=== PATIENT | female | born 1985 | race Caucasian/White ===

== ENCOUNTER → 2024-03-22 08:08 | Outpatient (REF) | payer BC, SELFPAY | LOC: HWWDC 08:08 | PROVIDERS: ATTENDING PHYSICIAN Obstetrics & Gynecology Gynecology; FAMILY PHYSICIAN Family Medicine | DX: Z12.31 Encounter for screening mammogram for malignant neoplasm of breast (principal) | CPT/HCPCS: 77063; 77067 ==

== ENCOUNTER 2024-10-14 01:11 | Emergency (ER) | payer BC, SELFPAY ==
[2024-10-14 01:16] VITALS: BP 160/102
[2024-10-14 01:34] LABS: Urine Albumin 4+ (Neg - Trace); Urine Bilirubin Negative (Negative); Urine Character Bloody (Clear); Urine Color Amber; Urine Glucose Negative (Negative); Urine Ketone 1+ (Negative); Urine Leukocyte 3+ (Negative); Urine Nitrite Positive (Negative); Urine Occult Blood 4+ (Negative); Urine Urobilinogen Negative (Neg - 1+)
[2024-10-14 01:43] VITALS: BMI 27.5
--- NOTE | 2024-10-14 01:59 | ED.GENMED ---
History of Present Illness
General
Chief Complaint: Urinary Symptoms
Source: patient
Exam Limitations: none
Time Seen by Provider: 10/14/24 01:21
Nursing documentation reviewed up to this point in time: agreed with
History of Present Illness
History of Present Illness:
39-year-old female with a past medical history of anxiety, depression presents emergency department today with concerns of hematuria. Patient reports that she woke up in the middle of the night to use the bathroom when she noticed that her urine
was pink-tinged. She also had burning with urination at the time and some intermittent pelvic discomfort. Of note, earlier today, she did have left inguinal pain that resolved. She denies any flank pain. She denies any nausea or vomiting or
fevers or chills. She had this once before many years ago in college and show UTI but patient reports that she has not had a UTI multiple years. She denies any diarrhea, constipation. She states that the urine has gotten darker as she has been
here.
Past History
Past History
ED Past Medical History: Hypercholesterolemia, Psychiatric (Anxiety) and Other (Ovarian cyst, Palpitations, Low ferritin level); Negative Asthma, HTN or NIDDM (gestational diabetes)
ED Past Surgical History: Gynecological (LEEP procedure 2003)
Social History
Tobacco: Non-smoker
Alcohol: None
Drug: None
Personal:
Living: with family
Review of Systems
Review of Systems
All Other Systems: ROS reviewed and negative except as documented in HPI and ROS
Phy Exam
Physical Exam
Physical Exam:
General: Patient is well appearing and in no acute distress; non-toxic
Skin: Warm and dry, no rashes or lesions
Head: Normocephalic, atraumatic
Eyes: Sclera non-icteric. EOMs intact.
Cardiac: Regular rate and rhythm, no murmurs
Peripheral Vascular: No lower extremity swelling or edema
Pulm: Normal respiratory effort, no wheezes, rales, rhonchi
Abdomen: No abdominal tenderness to palpation, no CVA tenderness bilaterally
Neuro: CN II-XII intact, no focal neurologic deficits.
Psychiatric: Appropriate mood and affect.
Course
Orders/Labs/Results
Orders:
Orders
10/14/24 01:28
HCG, Urine Qualitative Screen Urgent
Date Specimen was Collected: 10/14/24
Time Specimen was Collected: 01:25
Comment: ADD ON
Urinalysis Reflex To Culture Urgent
Date Specimen was Collected: 10/14/24
Time Specimen was Collected: :25
Urine Microscopic Reflex Cult Urgent
Urine Culture Urgent
MOE Source: U
Specimen Description:
Date Specimen was Collected: 10/14/24
Time Specimen was Collected: :25
10/14/24 01:58
CT Abd/pel Without Iv Or Oral Urgent
Comment:
Reason For Exam: left groin pain, ab pain
10/14/24 02:01
Add On- LAB Urgent
Tests Added?: urine hcg qualitative
Abnormal Lab Results
10/14/24
01:28
Urine Ketones 1+ A
(Negative)
Ur Occult Blood Reflex 4+ A
(Negative)
Urine Nitrite (Reflex) Positive A
(Negative)
Leukocyte Esterase Rfl 3+ A
(Negative)
Urine RBC >100 A /HPF
(0-2)
Urine WBC (Reflex) >100 A /HPF
(0-5)
Urine Bacteria (Reflex) Moderate A
(Negative)
Urine Albumin (Reflex) 4+ A
(Neg - Trace)
Vital Signs
Initial and Last Documented VS:
Initial Vital Signs
Temp Pulse Resp BP Pulse Ox
97.6 F 94 22 160/102 100
10/14/24 01:16 10/14/24 01:16 10/14/24 01:16 10/14/24 01:16 10/14/24 01:16
Last Documented Vital Signs
Temp Pulse Resp BP Pulse Ox
97.6 F 78 20 136/87 98
10/14/24 01:16 10/14/24 03:52 10/14/24 03:52 10/14/24 03:52 10/14/24 03:52
MDM/Problems Addressed
Differential Diagnosis Includes:
Differentials include acute cystitis, nephrolithiasis, bladder mass, interstitial cystitis
MDM/Problems Addressed:
39-year-old female presents emergency department today with concerns of burning with urination and gross hematuria. She did have episode of groin pain earlier which has resolved. On physical exam she is well-appearing no acute distress she is
afebrile she is no tenderness patient exam, she has no CVA tenderness. CT scan negative for acute stone urinalysis is concerning for infection. Will start on antibiotics, discussed follow-up with urology should symptoms persist send discussed
reports to return to emergency department. Patient stable for discharge.
*Pulse Oximetry
Patient hypoxic: no
*Critical Care Note
Total Time (30-74mins, 75-104mins- exclusive of procedures): Not Applicable
Data Reviewed
Review of Other/Old Records Reveals: Records (Reviewed previous ER physician documentation, reviewed discharge summary from patient was seen for pain control and hydration and had MRI done)
Source: patient and records
ED Attending Note
-
Portions of this chart may have been created with voice recognition software.� Occasional wrong word or��sound alike� substitutions may have occurred due to the inherent limitations of voice recognition software.
Discharge Plan
Departure
Patient Disposition: Home (Routine Discharge)
Date of Disposition: 10/14/24
Time of Disposition: 03:42
Patient with high blood pressure during this ER visit?: Yes
Condition: Good
Discharge Problem:
Hematuria, Acute cystitis
Instructions: Urinary Tract Infection, Adult (DC), Phenazopyridine, BLOOD PRESSURE
Prescriptions:
New
cephalexin 500 mg capsule
500 mg PO BID 7 Days Qty: 14 0RF
Referrals:
Ney Shin MD [Active] - Call in 1-3 days for appt
Marietta Perez MD [Family Provider] -
Activity Restrictions/Additional Instructions:
Keflex has been sent to your pharmacy. You take 1 tablet twice daily for 7 days.
Your blood in your urine is likely secondary to urinary tract infection. Your CAT scan does not show any evidence of kidney stone. Should the blood in your urine persist after treatment, please call attached number to schedule appointment with
urology.
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
PLEASE RETURN EMERGENCY DEPARTMENT SHOULD YOU DEVELOP INABILITY TO URINATE, FEVERS OR CHILLS, FLANK PAIN, CHEST PAIN, SHORTNESS OF BREATH, OR ANY OTHER SIGNS OR SYMPTOMS WORRISOME TO YOU.
Interventions
Interventions:
*Risk Screen - Suicide Last Done: 10/14/24 02:00
*General Assessment Last Done: 10/14/24 02:00
*Neglect/Abuse Screening Last Done: 10/14/24 02:00
*ED- Fall Risk Assessment Last Done: 10/14/24 03:53
*ED COVID-19 Vaccine History Last Done: 10/14/24 03:53
*Nursing Disposition Last Done: 10/14/24 03:53
ED-Female Genitourinary Assessment Last Done: 10/14/24 01:35
Discharge Date and Time
Discharge Date/Time: 10/14/24 03:54
Print Language: LITHUANIAN
[2024-10-14 02:11] LABS: HCG, Urine Qualitative Screen Negative
[2024-10-14 02:13] LABS: Urine Bacteria Moderate (Negative); Urine Red Blood Cell >100 /HPF (0-2); Urine White Cell >100 /HPF (0-5)
[2024-10-14 03:52] VITALS: BP 136/87
== END 2024-10-14 03:54 | disposition home or self-care (01) ==
LOC: EMR 01:11
PROVIDERS: Physician Assistant; EMERGENCY PHYSICIAN Emergency Medicine; FAMILY PHYSICIAN Family Medicine
DX: N30.01 Acute cystitis with hematuria (principal); E78.00 Pure hypercholesterolemia, unspecified
CPT/HCPCS: 99284; 74176; 81003; 81015; 81025; 87077; 87086; 87186

== ENCOUNTER → 2025-04-03 08:29 | Outpatient (REF) | payer BC, SELFPAY | LOC: HWWDC 08:29 | PROVIDERS: ATTENDING PHYSICIAN Obstetrics & Gynecology Gynecology; FAMILY PHYSICIAN Physician Assistant Medical | DX: Z12.31 Encounter for screening mammogram for malignant neoplasm of breast (principal) | CPT/HCPCS: 77063; 77067 ==

== ENCOUNTER → 2025-04-09 09:27 | Outpatient (REF) | payer BC, SELFPAY | LOC: WDC 09:27 | PROVIDERS: ATTENDING PHYSICIAN Obstetrics & Gynecology Gynecology; FAMILY PHYSICIAN Physician Assistant Medical | DX: R92.8 Other abnormal and inconclusive findings on diagnostic imaging of breast (principal) | CPT/HCPCS: 76642 ==